=== PATIENT | male | born 1940 | race Caucasian/White ===

== ENCOUNTER → 2017-03-09 | Outpatient (CLI) | payer MEDICARE, BC ==
[~2017-03-09] MED LIST: ACTOPLUS MET 501 TAB; ACTOPLUS MET 501 TAB PO; DOXAZOCIN PO; FERROUS SU325 MG/TAB PO; FINASTERIDE5 MG PO; FOLIC ACID 40400 MCG PO; GLUCOSAMINE/CHONDROI PO; IBUPROFEN 200200 MG PO; IRON FERROUS S325 MG PO; NIASPAN 500MG500 MG PO; NIASPAN500 MG PO; VITAMIN C500 MG PO; ZETIA10 MG PO
== END ==
LOC: COL.RAD 08:00
DX: M19.032 Primary osteoarthritis, left wrist (principal)
CPT/HCPCS: J3301; Q9967

== ENCOUNTER 2018-06-21 08:00 | Outpatient (CLI) | payer MEDICARE, BC ==
[~2018-06-21 08:00] MED LIST changes: +CARDURA 8MG TAB8 MG PO; -DOXAZOCIN PO; -FINASTERIDE5 MG PO; +PROSCAR 5MG5 MG PO
[2018-06-21] MEDS ORDERED: JANUMXR1000-50 PO (09:06)
[2018-06-21] MEDS ORDERED: ACTOS30 MG PO (09:06)
[2018-06-21 09:30] VITALS: BP 130/70; PULSE 59; TEMP 97.6
[2018-06-21 09:41] LABS: HEMOGLOBIN 11.6 g/dl (13.5-18.0); MEAN CELL VOLUME 99 fl (80.0-100.0); MEAN CORPUSCULAR HEMOGLOBIN 34 pg (27.0-31.0); MEAN CORPUSCULAR HGB CONC 34 g/dl (33.0-37.0); MEAN PLATELET VOLUME 8.7 fl (7.4-10.4); PLATELET COUNT 138 K/mm3 (130-400); RED BLOOD COUNT 3.46 M/mm3 (4.20-5.60); REDCELL DISTRIBUTION WIDTH-CV 14.3 % (11.5-14.5)
[2018-06-21 09:42] LABS: HEMATOCRIT 34.2 % (42.0-52.0)
[2018-06-21 10:11] LABS: BAND 8 % (0-10); EOSINOPHIL 2 % (0-4); LYMPHOCYTE 50 % (20.0-51.0); NEUTROPHILS 32 % (42.0-75.2)
[2018-06-21 10:12] LABS: PLATELET ESTIMATE DECREASED (NORMAL)
[2018-06-21 10:30] VITALS: BP 136/67; PULSE 54
[2018-06-21 10:45] VITALS: BP 140/72; PULSE 62
[2018-06-21 11:00] VITALS: BP 150/71; PULSE 57
[2018-06-21 11:15] VITALS: BP 156/74; PULSE 62; TEMP 96.8
== END 2018-06-21 11:46 | disposition home or self-care (01) ==
LOC: SDCO 08:00
PROVIDERS: Internal Medicine
DX: D61.818 Other pancytopenia (principal); E11.9 Type 2 diabetes mellitus without complications; M19.90 Unspecified osteoarthritis, unspecified site; E78.5 Hyperlipidemia, unspecified; I10 Essential (primary) hypertension; G47.33 Obstructive sleep apnea (adult) (pediatric); D64.9 Anemia, unspecified; Z79.82 Long term (current) use of aspirin; Z79.84 Long term (current) use of oral hypoglycemic drugs; Z96.653 Presence of artificial knee joint, bilateral; Z85.828 Personal history of other malignant neoplasm of skin
CPT/HCPCS: J2250; J2405; J2704

== ENCOUNTER 2020-08-21 07:13 | Day surgery (SDC) | payer MEDICARE, BC ==
[~2020-08-21 07:13] MED LIST changes: +ACTOS30 MG PO; +ASPIRIN E.C. 8181 MG PO; +JANUMXR500-50 PO; +NORVASC 5MG5 MG/TAB PO; +VITAMIN D31000 I1 PO
[2020-08-21 08:48] LABS: HEMOGLOBIN 11.9 g/dl (13.5-18.0); MEAN CELL VOLUME 102 fl (80.0-100.0); MEAN CORPUSCULAR HEMOGLOBIN 35 pg (27.0-31.0); MEAN CORPUSCULAR HGB CONC 34 g/dl (33.0-37.0); MEAN PLATELET VOLUME 9.4 fl (7.4-10.4); PLATELET COUNT 120 K/mm3 (130-400); RED BLOOD COUNT 3.44 M/mm3 (4.20-5.60); REDCELL DISTRIBUTION WIDTH-CV 14.6 % (11.5-14.5)
[2020-08-21 08:53] LABS: RETIC # 0.08 M/mm3 (0.02-0.16); RETIC % 2.4 % (0.5-3.52)
--- NOTE | 2020-08-21 08:54 | NUR ---
Pt to procedure at this time.
[2020-08-21 08:56] VITALS: BP 177/74; PULSE 51; TEMP 97.8
[2020-08-21] MEDS ORDERED: PACERONE200 MG PO (09:02)
[2020-08-21] MEDS ORDERED: MYLANTA MAXIMU355 M1 PO (09:02)
[2020-08-21] MEDS ORDERED: LIPITOR 10MG10 MG PO (09:03)
[2020-08-21] MEDS ORDERED: FERROUS SU325 MG/TAB PO (09:03)
[2020-08-21] MEDS ORDERED: DUO-KAPS1 CAP PO (09:04)
[2020-08-21] MEDS ORDERED: LOPRESSOR 550 MG/TAB PO (09:04)
[2020-08-21 09:05] LABS: BAND 1 % (0-10); LYMPHOCYTE 44 % (20.0-51.0); METAMYELOCYTE 4 % (0-0); NEUTROPHILS 38 % (42.0-75.2)
[2020-08-21] MEDS ORDERED: FLOMAX 0.40.4 MG/CAP PO (09:05)
[2020-08-21] MEDS ORDERED: PROBIOTIC FORMU1 CAP PO (09:05)
[2020-08-21 09:06] LABS: ANISOCYTOSIS 1+; PLATELET ESTIMATE DECREASED (NORMAL)
[2020-08-21] MEDS ORDERED: VITAMINC1000TA PO (09:06)
[2020-08-21] MEDS ORDERED: PHARMASSURE ZIN50 MG PO (09:06)
[2020-08-21 09:54] VITALS: BP 167/75; PULSE 53
[2020-08-21 10:00] VITALS: BP 161/73; PULSE 51
[2020-08-21 10:15] VITALS: BP 169/72; PULSE 50
[2020-08-21 10:20] LABS: IRON,SERUM 89 ug/dL (35-150)
[2020-08-21 10:30] VITALS: BP 168/74; PULSE 51
[2020-08-21 10:30] LABS: TOTAL IRON BINDING CAPACITY 281 ug/dL (261-462)
--- NOTE | 2020-08-21 10:45 | NUR ---
Discharge instructions igven to pt.pt verbalizes understanding.INT removed,catheter tip intact.Pt escorted out via wheelchair by SHAQ Hernandez.
[2020-08-21 19:31] LABS: FOLATE (FOLIC ACID) 16.1 ng/mL (7.0-31.4)
== END 2020-08-21 11:32 | disposition home or self-care (01) ==
LOC: SDCO 07:13
PROVIDERS: Internal Medicine
DX: D47.9 Neoplasm of uncertain behavior of lymphoid, hematopoietic and related tissue, unspecified (principal); D61.818 Other pancytopenia; I25.10 Atherosclerotic heart disease of native coronary artery without angina pectoris; E11.9 Type 2 diabetes mellitus without complications; E78.5 Hyperlipidemia, unspecified; M19.90 Unspecified osteoarthritis, unspecified site; Z79.899 Other long term (current) drug therapy; Z79.82 Long term (current) use of aspirin; Z79.84 Long term (current) use of oral hypoglycemic drugs; Z95.1 Presence of aortocoronary bypass graft
CPT/HCPCS: J2704; J3010; J7030